=== PATIENT | female | born 1985 | race Caucasian/White ===

== ENCOUNTER → 2023-12-11 11:48 | Outpatient (REF) | payer BC, SELFPAY | LOC: PNTC 11:48 | PROVIDERS: ATTENDING PHYSICIAN Obstetrics & Gynecology | DX: O44.03 Complete placenta previa NOS or without hemorrhage, third trimester (principal); O43.219 Placenta accreta, unspecified trimester; O09.819 Supervision of pregnancy resulting from assisted reproductive technology, unspecified trimester; O09.529 Supervision of elderly multigravida, unspecified trimester; O36.4XX0 Maternal care for intrauterine death, not applicable or unspecified | CPT/HCPCS: 76811; 76817; 93976 ==

== ENCOUNTER 2023-12-13 07:40 | Emergency (ER) | payer BC, SELFPAY ==
[2023-12-13 07:42] VITALS: BP 121/80
[2023-12-13 08:18] VITALS: BMI 36.8
[2023-12-13 08:22] VITALS: BP 142/108
--- NOTE | 2023-12-13 08:28 | ED.GENMED ---
History of Present Illness
<JEANNIE Queen - Last Filed: 12/13/23 14:41>
General
Chief Complaint: Problems
Source: patient
Exam Limitations: none
Time Seen by Provider: 12/13/23 08:16
Nursing documentation reviewed up to this point in time: agreed with
Travel History
Have you had any contact with someone who has COVID-19?: No
Do you have any symptoms of coronavirus? Fever > 100 degrees, chills, cough, shortness of breath, sore throat, loss of taste or smell, muscle aches, or headache?: No
History of Present Illness
History of Present Illness:
38-year-old female presents to the ER for evaluation. Patient is 21 weeks 4 days and reports this morning she has not felt movement. She reports normally she feels the baby move every morning. She does have history 2 years ago of
delivering a full-term stillbirth. She is followed by Dr. Jackie banuelos.
She denies any abdominal pain back pain nausea vomiting, vaginal bleeding.
Past History
<JEANNIE Queen - Last Filed: 12/13/23 14:41>
Past History
ED Past Surgical History: Gynecological
Social History
Tobacco: Non-smoker
Alcohol: None
Drug: None
Personal:
Living: with family
Employment: Employed
Family History
Family History: Other (clotting disorder)
Review of Systems
<JEANNIE Queen - Last Filed: 12/13/23 14:41>
Review of Systems
Allergies reviewed?: Yes
All Other Systems: ROS reviewed and negative except as documented in HPI and ROS
Constitutional: Reports no symptoms; Denies fever, fatigue or chills
Respiratory: Reports no symptoms
Cardiac: Reports no symptoms
ABD/GI: Reports no symptoms; Denies abdominal pain, nausea or vomiting
: Reports no symptoms
Musculoskeletal: Denies neck pain or back pain
Skin: Reports no symptoms
Neurological: Reports no symptoms
Psychiatric: Reports no symptoms
Phy Exam
<JEANNIE Queen - Last Filed: 12/13/23 14:41>
General Physical Exam
General Presentation: no apparent distress
General age: appears stated age
General Skin: warm and dry
General Mental: alert
General Hydration: appears well hydrated
Gastrointestinal Exam
Gastrointestinal Exam: non tender and other (gravid abdomen )
Neurological Exam
Neurological Exam: alert and oriented x3
Musculoskeletal Exam
Musculoskeletal Exam: full ROM
Skin Exam
Skin Exam: normal color and warm/dry
Psychiatric Exam
Psychiatric Exam: normal mood/affect
Course
<JEANNIE Queen - Last Filed: 12/13/23 14:41>
Orders/Labs/Results
Orders:
Orders
12/13/23 08:36
US Limited Urgent
Reason For Exam: no movement
Vital Signs
Initial and Last Documented VS:
Initial Vital Signs
Temp Pulse Resp BP Pulse Ox
98.3 F 118 18 121/80 100
12/13/23 07:42 12/13/23 07:42 12/13/23 07:42 12/13/23 07:42 12/13/23 07:42
Last Documented Vital Signs
Temp Pulse Resp BP Pulse Ox
98.3 F 98 18 123/66 96
12/13/23 07:42 12/13/23 09:47 12/13/23 08:51 12/13/23 09:47 12/13/23 08:51
Supervisor Of Operations consulted with Physician
Supervisor Of Operations consulted with physician?: Yes
Name of Physician Consulted: saqib
Information
Weeks gestation: Weeks:
Location: Location:
<Gail Macias MD - Last Filed: 12/13/23 09:18>
Orders/Labs/Results
Orders:
Orders
12/13/23 08:36
US Limited Urgent
Reason For Exam: no movement
Vital Signs
Initial and Last Documented VS:
Initial Vital Signs
Temp Pulse Resp BP Pulse Ox
98.3 F 118 18 121/80 100
12/13/23 07:42 12/13/23 07:42 12/13/23 07:42 12/13/23 07:42 12/13/23 07:42
Last Documented Vital Signs
Temp Pulse Resp BP Pulse Ox
98.3 F 98 18 123/66 96
12/13/23 07:42 12/13/23 09:47 12/13/23 08:51 12/13/23 09:47 12/13/23 08:51
<JEANNIE Queen - Last Filed: 12/13/23 14:41>
MDM/Problems Addressed
Differential Diagnosis Includes:
Not limited to demise
MDM/Problems Addressed:
Patient is a 38-year-old female who presents today at 20 weeks 1 day with concerns of decreased movement. She reports normally in the morning she feels the baby move but did not this morning. She does have prior history 2 years ago
of delivering a full-term stillbirth. Patient presents anxious. She denies any abdominal pain vaginal bleeding back pain. I spoke with labor and delivery with 21-week gestation ultrasound was ordered from ER. Ultrasound is normal with good
activity. Patient is stable for discharge home.
<JEANNIE Queen - Last Filed: 12/13/23 14:41>
*Radiology
Radiology exam reviewed: radiology read reviewed (Ultrasound shows single viable intrauterine fetus which indicate an estimated gestational age of 21 weeks and 5 days)
*Pulse Oximetry
Patient hypoxic: no
*Critical Care Note
Total Time (30-74mins, 75-104mins- exclusive of procedures): Not Applicable
ED Attending Note
<JEANNIE Queen - Last Filed: 12/13/23 14:41>
-
Portions of this chart may have been created with voice recognition software.� Occasional wrong word or��sound alike� substitutions may have occurred due to the inherent limitations of voice recognition software.
<Gail Macias MD - Last Filed: 12/13/23 09:18>
ED Attending Note
Patient seen and examined by attending physician: Yes
I performed the substantive portion of visit, reviewed & personally made and approve the management plan that is documented in note by myself or HALEIGH.: Yes
ED Attending Note:
38 yr old with decreased movemnet this AM. No abd pain. bleeding or leakage of fluid. US c/w nl IUP. OB contated. Pt will f/u.
Discharge Plan
Departure
Patient Disposition: Home (Routine Discharge)
Date of Disposition: 12/13/23
Time of Disposition: 09:44
Patient with high blood pressure during this ER visit?: Yes
Condition: Fair
Covid-19: Not Applicable
Discharge Problem:
evaluation
Instructions: BLOOD PRESSURE
Prescriptions:
No Action
Vitamin Tablet
1 tab PO DAILY AT 0700
aspirin 81 mg Capsule
81 mg PO DAILY
Lovenox
Referrals:
Kirstie Mejia, DO [Active] -
NONE,* [Family Provider] -
Activity Restrictions/Additional Instructions:
Follow-up as scheduled with your [employer] ARCHITECT. Return if any worsening of symptoms.
As discussed please have your blood pressure rechecked by your [employer] ARCHITECT as it was elevated here in the ER.
Interventions
Interventions:
*Risk Screen - Suicide Last Done: 12/13/23 07:42
*General Assessment Last Done: 12/13/23 08:18
*Neglect/Abuse Screening Last Done: 12/13/23 07:42
ED- Fall Risk Assessment Last Done: 12/13/23 08:18
*ED COVID-19 Vaccine History Last Done: 12/13/23 07:42
*Nursing Disposition Last Done: 12/13/23 09:49
ED-Female Genitourinary Assessment Last Done: 12/13/23 08:18
Discharge Date and Time
Discharge Date/Time: 12/13/23 09:49
[2023-12-13 09:16] VITALS: BP 147/90
[2023-12-13 09:45] VITALS: BP 123/66
[2023-12-13 09:47] VITALS: BP 123/66
== END 2023-12-13 09:49 | disposition home or self-care (01) ==
LOC: EMR 07:40
PROVIDERS: EMERGENCY PHYSICIAN Emergency Medicine
DX: O26.892 Other specified pregnancy related conditions, second trimester (principal); Z3A.21 21 weeks gestation of pregnancy
CPT/HCPCS: 99284; 76815

== ENCOUNTER → 2023-12-14 09:30 | Outpatient (REF) | payer BC, SELFPAY ==
--- NOTE | 2023-12-14 10:16 | PN.DIAED06 ---
Meal Plan - Gestational
- Breakfast
Gestational Diabetes Meal Plan Name: 2000 calories
Breakfast - Total Carbohydrate (grams): 45
Breakfast - Starch Carbohydrate: 2
Breakfast - Fruit Carbohydrate: 0
Breakfast - Milk Carbohydrate: 1
Breakfast - Nonstarchy Vegetables: Yes
Breakfast - Meat/Protein: 1
Breakfast - Fat: 2
- Morning Snack
Morning Snack - Total Carbohydrate (grams): 30
Morning Snack - Starch Carbohydrate: 1
Morning Snack - Fruit Carbohydrate: 0
Morning Snack - Milk Carbohydrate: 1
Morning Snack - Nonstarchy Vegetables: Yes
Morning Snack - Meat/Protein: 0
Morning Snack - Fat: 0
- Lunch
Lunch - Total Carbohydrate (grams): 45
Lunch - Starch Carbohydrate: 1
Lunch - Fruit Carbohydrate: 1
Lunch - Milk Carbohydrate: 1
Lunch - Nonstarchy Vegetables: Yes
Lunch - Meat/Protein: 2
Lunch - Fat: 2
- Afternoon Snack
Afternoon Snack - Total Carbohydrate (grams): 30
Afternoon Snack - Starch Carbohydrate: 1
Afternoon Snack - Fruit Carbohydrate: 1
Afternoon Snack - Milk Carbohydrate: 0
Afternoon Snack - Nonstarchy Vegetables: Yes
Afternoon Snack - Meat/Protein: 1
Afternoon Snack - Fat: 0
- Dinner
Dinner - Total Carbohydrate (grams): 45
Dinner - Starch Carbohydrate: 2
Dinner - Fruit Carbohydrate: 1
Dinner - Milk Carbohydrate: 0
Dinner - Nonstarchy Vegetables: Yes
Dinner - Meat/Protein: 2
Dinner - Fat: 2
- Evening Snack
Evening Snack - Total Carbohydrate (grams): 45
Evening Snack - Starch Carbohydrate: 1
Evening Snack - Fruit Carbohydrate: 1
Evening Snack - Milk Carbohydrate: 1
Evening Snack - Nonstarchy Vegetables: Yes
Evening Snack - Meat/Protein: 1
Evening Snack - Fat: 0
--- NOTE | 2023-12-15 08:30 | PN.DIAED02 ---
Referral
Referred For: Gestational Diabetes Self-Management Training
PHI Release Authorization Form Signed: Yes
Patient Problems:
Current Active Problems
Problem Status Onset
Gestational diabetes
Demographic
(1) Gestational diabetes
Status: Acute Code(s): O24.419 - Gestational diabetes mellitus in , unspecified control
Patient's primary language-: [place]
Medical History of Diabetes
- Female Specific Medical History
Currently ?: Yes
Receiving care?: Yes
Estimated date of Confinement: 04/20/24 (C section scheduled for 04/03/24)
: 3
Para: 1
Care Plan
- Education Needs
Patient Education Needs: Preconception care//gestational diabetes management
Recommended Diabetes Training Program based on assessment: Gestational Diabetes Management
- Plan of Care
Plan of Care:
Amalia seen today for diagnosis gestational diabetes. EDC 04/20/24 (female),scheduled 04/03/24. 7 yr son at home. Stillborn male at 35 week 02/2021. Prior history of GDM with second , no education given. Discussed what is occuring
in her body and importance to keep BS well controlled to avoid any complications (hypoglycemia, macrosomia) to her daughter.She brought in One Touch Ultra 2 glucometer from previous , test strips . She was paying for the test strips
out of pocket at the time. Instructions with excellent return demonstration using Contour Next EX glucometer, initially nervous about 'sticking' herself,she was pleased that she didn't feel and requesting to use this glucometer. Aware of proper
testing technique, lancing device set at 2, testing sites ( previously used fingertips as opposed to side of the fingers), to wipe first drop away and expected results. Log sheet provided for her to record BS, aware to call results to Natalia at
[facility] every Monday. Todays results 99 mg/dl at 1000. To check FBS and 2 hr pp every meal withe expected results FBS <95 mg/dl, and 2 hr pp result <120 mg/dl. Discussed macronutrients and effect each has on BS and metabolism. Provided
with 2000 rochelle ADA GDM meal plan ((5'9', pre wgt 259#, current wgt 245#). Advised not to intentionally lose weight while , states she has been eating healthier since dx, heavily restricting CHO. Discussed importance of CHO as well as
her eating pattern/preferences. She is aware to avoid fruit/fruit juices until noon. Typical breakfast includes omelet or egg with toast/avocado, may add almond yogurt. snack preferences are veggies w/hummus, fruit w/sunflower butter Lunches consist
of salads, soup, half of sandwich, will add fruit at this time. Dinners are typically a protein, starch and vegetables/salad. She has not been eating processed/sweets. She is concerned that quantity is more than she can consume, did reduce 2 snack
to 15 gm CHO and okay to consume 30-45 gm CHO at meal.
The placenta is low but starting to move so at this time, she is unable to exercise. Once cleared of placenta previa, she will walk. She is active around the house. She is aware that having GDM puts her at risk for developing T2DM. To call if she
has further questions or needs insulin as the develops.
States she did go to the ED yesterday due to decreased movements, tearful discussion as she is worried about demise. Emotional support and understanding given
== END ==
LOC: DES 09:30
PROVIDERS: ATTENDING PHYSICIAN Obstetrics & Gynecology
DX: O24.419 Gestational diabetes mellitus in pregnancy, unspecified control (principal)
CPT/HCPCS: 99078

== ENCOUNTER → 2024-01-02 10:11 | Outpatient (REF) | payer BC, SELFPAY | LOC: PNTC 10:11 | PROVIDERS: ATTENDING PHYSICIAN Obstetrics & Gynecology | DX: O09.529 Supervision of elderly multigravida, unspecified trimester (principal); O99.210 Obesity complicating pregnancy, unspecified trimester; O09.819 Supervision of pregnancy resulting from assisted reproductive technology, unspecified trimester; O36.4XX0 Maternal care for intrauterine death, not applicable or unspecified | CPT/HCPCS: 76816 ==

== ENCOUNTER → 2024-01-05 09:13 | Outpatient (REF) | payer BC, SELFPAY ==
--- NOTE | 2024-01-05 09:59 | PN.DIAED10 ---
Update Note
- Diabetes Education Update Note
Notes:
Follow up visit for insulin instructions. Amalia with elevated FBS last week 95-101 mg/dl, this morning result 114 mg/dl. To start NPH 6 units HS, insulin pen and pen needles to be picked up this evening. Discussed onset, peak and duration
definitions. Discussed symptoms and treatment of hypoglycemia. Suggest checking BS tonight at [phone]. Instructions with excellent return demonstration using insulin pen, Amalia is aware to gently mix to a cloudy consistency, clean top of pen and
her thigh, attach needle, prime the needle, reset to zero, dial dose of 6 units, inject and hold in place for a count of 10. To dispose of needle in her sharps container. She is aware to call with any questions.
== END ==
LOC: DES 09:13
PROVIDERS: ATTENDING PHYSICIAN Obstetrics & Gynecology
DX: O24.419 Gestational diabetes mellitus in pregnancy, unspecified control (principal)
CPT/HCPCS: 99078

== ENCOUNTER → 2024-01-30 10:14 | Outpatient (REF) | payer BC, SELFPAY | LOC: PNTC 10:14 | PROVIDERS: ATTENDING PHYSICIAN Obstetrics & Gynecology | DX: O09.529 Supervision of elderly multigravida, unspecified trimester (principal); O99.210 Obesity complicating pregnancy, unspecified trimester; O09.819 Supervision of pregnancy resulting from assisted reproductive technology, unspecified trimester; Z87.59 Personal history of other complications of pregnancy, childbirth and the puerperium | CPT/HCPCS: 76816 ==

== ENCOUNTER → 2024-02-26 09:53 | Outpatient (REF) | payer BC, SELFPAY | LOC: PNTC 09:53 | PROVIDERS: ATTENDING PHYSICIAN Obstetrics & Gynecology | DX: O09.529 Supervision of elderly multigravida, unspecified trimester (principal); O99.210 Obesity complicating pregnancy, unspecified trimester; O09.819 Supervision of pregnancy resulting from assisted reproductive technology, unspecified trimester; O36.4XX0 Maternal care for intrauterine death, not applicable or unspecified; O43.219 Placenta accreta, unspecified trimester | CPT/HCPCS: 59025; 76816; 93976 ==

== ENCOUNTER → 2024-02-29 09:51 | Outpatient (REF) | payer BC, SELFPAY | LOC: PNTC 09:51 | PROVIDERS: ATTENDING PHYSICIAN Obstetrics & Gynecology | DX: O99.210 Obesity complicating pregnancy, unspecified trimester (principal); O88.213 Thromboembolism in pregnancy, third trimester; O09.299 Supervision of pregnancy with other poor reproductive or obstetric history, unspecified trimester; O13.9 Gestational [pregnancy-induced] hypertension without significant proteinuria, unspecified trimester | CPT/HCPCS: 59025 ==

== ENCOUNTER → 2024-03-04 09:53 | Outpatient (REF) | payer BC, SELFPAY | LOC: PNTC 09:53 | PROVIDERS: ATTENDING PHYSICIAN Obstetrics & Gynecology | DX: O99.210 Obesity complicating pregnancy, unspecified trimester (principal); O88.213 Thromboembolism in pregnancy, third trimester; O36.4XX0 Maternal care for intrauterine death, not applicable or unspecified; O24.419 Gestational diabetes mellitus in pregnancy, unspecified control | CPT/HCPCS: 59025; 76815 ==

== ENCOUNTER → 2024-03-07 14:39 | Outpatient (REF) | payer BC, SELFPAY | LOC: PNTC 14:39 | PROVIDERS: ATTENDING PHYSICIAN Obstetrics & Gynecology | DX: O99.210 Obesity complicating pregnancy, unspecified trimester (principal); O24.419 Gestational diabetes mellitus in pregnancy, unspecified control | CPT/HCPCS: 59025 ==

== ENCOUNTER → 2024-03-11 10:01 | Outpatient (REF) | payer BC, SELFPAY | LOC: PNTC 10:01 | PROVIDERS: ATTENDING PHYSICIAN Obstetrics & Gynecology | DX: O99.210 Obesity complicating pregnancy, unspecified trimester (principal); O88.213 Thromboembolism in pregnancy, third trimester; O24.419 Gestational diabetes mellitus in pregnancy, unspecified control; O36.4XX0 Maternal care for intrauterine death, not applicable or unspecified | CPT/HCPCS: 59025; 76815 ==

== ENCOUNTER 2024-03-12 21:42 | Observation (INO) | payer BC, SELFPAY ==
[2024-03-12 21:59] VITALS: BP 125/86; BMI 34.1
== END 2024-03-12 22:54 | disposition home or self-care (01) ==
LOC: LDRP 21:42
PROVIDERS: ADMITTING PHYSICIAN Obstetrics & Gynecology
DX: R10.31 Right lower quadrant pain (principal); O99.113 Other diseases of the blood and blood-forming organs and certain disorders involving the immune mechanism complicating pregnancy, third trimester; Z3A.34 34 weeks gestation of pregnancy; O09.523 Supervision of elderly multigravida, third trimester; O24.414 Gestational diabetes mellitus in pregnancy, insulin controlled; D68.59 Other primary thrombophilia; O09.293 Supervision of pregnancy with other poor reproductive or obstetric history, third trimester
CPT/HCPCS: 59899; G0378

== ENCOUNTER → 2024-03-14 09:52 | Outpatient (REF) | payer BC, SELFPAY | LOC: PNTC 09:52 | PROVIDERS: ATTENDING PHYSICIAN Obstetrics & Gynecology | DX: O99.210 Obesity complicating pregnancy, unspecified trimester (principal); O36.4XX0 Maternal care for intrauterine death, not applicable or unspecified | CPT/HCPCS: 59025 ==

== ENCOUNTER → 2024-03-18 09:43 | Outpatient (REF) | payer BC, SELFPAY | LOC: PNTC 09:43 | PROVIDERS: ATTENDING PHYSICIAN Obstetrics & Gynecology | DX: D68.59 Other primary thrombophilia (principal); O99.210 Obesity complicating pregnancy, unspecified trimester; O36.4XX0 Maternal care for intrauterine death, not applicable or unspecified; O24.419 Gestational diabetes mellitus in pregnancy, unspecified control | CPT/HCPCS: 59025; 76815 ==

== ENCOUNTER → 2024-03-21 09:49 | Outpatient (REF) | payer BC, SELFPAY | LOC: PNTC 09:49 | PROVIDERS: ATTENDING PHYSICIAN Obstetrics & Gynecology | DX: D68.69 Other thrombophilia (principal); O99.210 Obesity complicating pregnancy, unspecified trimester; O36.4XX0 Maternal care for intrauterine death, not applicable or unspecified; O24.419 Gestational diabetes mellitus in pregnancy, unspecified control | CPT/HCPCS: 59025 ==

== ENCOUNTER → 2024-03-26 09:58 | Outpatient (REF) | payer BC, SELFPAY | LOC: PNTC 09:58 | PROVIDERS: ATTENDING PHYSICIAN Obstetrics & Gynecology | DX: D68.69 Other thrombophilia (principal) | CPT/HCPCS: 59025; 76816 ==

== ENCOUNTER → 2024-04-02 10:18 | Outpatient (REF) | payer BC, SELFPAY | LOC: PNTC 10:18 | PROVIDERS: ATTENDING PHYSICIAN Obstetrics & Gynecology | DX: D68.69 Other thrombophilia (principal); O99.210 Obesity complicating pregnancy, unspecified trimester; O36.4XX0 Maternal care for intrauterine death, not applicable or unspecified; O24.419 Gestational diabetes mellitus in pregnancy, unspecified control | CPT/HCPCS: 59025; 76815 ==

== ENCOUNTER 2024-04-03 07:44 | Inpatient (IN) | payer BC, SELFPAY ==
[2024-04-03 08:24] LABS: Glucose - Point of Care 93 mg/dl (70-99)
[2024-04-03 08:25] VITALS: BP 97/76; BMI 35.6
--- NOTE | 2024-04-03 08:25 | W.SUR.PREOP ---
Pre-Operative Surgical Note
-
I have examined this patient prior to the performance of the scheduled procedure.
The patient's condition is unchanged from the time of the current History and
Physical and the patient is able to undergo the scheduled procedure.
[2024-04-03 08:35] LABS: Hematocrit 37.5 % (37.0-47.0); Hemoglobin 12.5 g/dL (12.0-16.0); Mean Corp Hgb Conc. 33.3 g/dL (33.0-37.0); Mean Corpuscular Hgb 25.8 pg (27.0-31.0); Mean Corpuscular Volume 77.3 fL (81.0-99.0); Mean Platelet Volume 10.9 fL (7.4-10.4); Platelet Count 163 10^3/uL (130-400); Red Blood Cell Count 4.85 10^6/uL (4.20-5.40); Red Cell Dist. Width 15.6 % (11.5-14.5); White Blood Cell Count 8.1 10^3/uL (4.8-10.8)
[2024-04-03] MEDS: ANCEF 10 IV (10:09)
[2024-04-03] MEDS: BICITRA 30 ML PO (10:09)
[2024-04-03] MEDS: TYLENOL 1000 MG PO (10:10)
[2024-04-03] MEDS: PITOCIN 30 UNITS/NSS 500 ML IV (11:22)
[2024-04-03] MEDS: TORADOL 15 MG IV ×2 (17:00→23:37)
[2024-04-04] MEDS: TORADOL 15 MG IV ×2 (04:48→10:51)
[2024-04-04 05:05] LABS: Hematocrit 29.5 % (37.0-47.0); Hemoglobin 9.7 g/dL (12.0-16.0); Mean Corp Hgb Conc. 32.9 g/dL (33.0-37.0); Mean Corpuscular Hgb 26.2 pg (27.0-31.0); Mean Corpuscular Volume 79.7 fL (81.0-99.0); Mean Platelet Volume 11.9 fL (7.4-10.4); Platelet Count 170 10^3/uL (130-400); Red Cell Dist. Width 15.6 % (11.5-14.5); White Blood Cell Count 13.9 10^3/uL (4.8-10.8)
[2024-04-04] MEDS: PRENATAL PLUS 1 TABLET PO (06:33)
--- NOTE | 2024-04-04 07:59 | W.PN.ANS.POP ---
Anesthesia Post Operative
- Anesthesia Post Op Note
Vital Signs Stable-See Nursing Note: Yes
Airway Patent: Yes
Adequate Pain Control: Yes
Change in Mental Status: No
Current Postoperative Nausea & Vomiting: No
Anesthesia Complications: No
General Anesthetic Recall: No
Unplanned Admission: No
Post Op Hydration Adequate: Yes
[2024-04-04] MEDS: PERCOCET 5/325 1 TABLET PO (13:48)
[2024-04-04] MEDS: MOTRIN 600 MG PO (18:31)
[2024-04-04] MEDS: PERCOCET 5/325 2 TABLET PO (20:30)
[2024-04-05] MEDS: MOTRIN 600 MG PO (00:14)
[2024-04-05] MEDS: PERCOCET 5/325 2 TABLET PO ×3 (01:59→12:17)
[2024-04-05] MEDS: FEOSOL 325 MG PO (07:49)
[2024-04-05] MEDS: PRENATAL PLUS 1 TABLET PO (07:49)
--- NOTE | 2024-04-05 10:29 | W.DS.TRANS ---
DC Summary - System Support Developer
-
Discharge Instructions:
Discharge Diagnosis/Procedures rcs
Instructions:
Stand-Alone Forms: LDRP Delivery
Changes to Home Medications: No
Discharge Medications:
DC Medications w/original date entered in [employer]
Vitamin Tablet 1 tab PO DAILY AT 0700 02/22/21
vit D3-folic [id number] 1 tab PO DAILY 04/03/24
ibuprofen 600 mg tablet 600 mg PO Q6HPRN PRN cramps #90 tabs 04/05/24
oxycodone-acetaminophen 5 mg-325 mg tablet 2 tab PO Q4HPRN PRN severe pain #10 tabs 04/05/24
Home Medication Changes
Pending Results: Yes
Additional Pending Results:
pathology
Total time spent discharging patient (in min): 20
[2024-04-05 13:18] LABS: Syphilis/T. pallidum Ab Reflex Negative (Negative)
== END 2024-04-05 13:38 | disposition home or self-care (01) | DRG 787 ==
LOC: LDRP 07:44
PROVIDERS: ADMITTING PHYSICIAN Obstetrics & Gynecology
PROC: 10D00Z1 Extraction of Products of Conception, Low, Open Approach (ICD-10-PCS; 2024-04-03)
DX: O34.211 Maternal care for low transverse scar from previous cesarean delivery (principal); D68.59 Other primary thrombophilia; E72.12 Methylenetetrahydrofolate reductase deficiency; O99.12 Other diseases of the blood and blood-forming organs and certain disorders involving the immune mechanism complicating childbirth; N85.8 Other specified noninflammatory disorders of uterus; O99.214 Obesity complicating childbirth; O99.284 Endocrine, nutritional and metabolic diseases complicating childbirth; Z3A.37 37 weeks gestation of pregnancy; Z37.0 Single live birth; O24.429 Gestational diabetes mellitus in childbirth, unspecified control; O09.299 Supervision of pregnancy with other poor reproductive or obstetric history, unspecified trimester
CPT/HCPCS: 88307; 82962; 85027; 86780; 86850; 86900; 86901

== ENCOUNTER → 2024-07-31 10:22 | Outpatient (REF) | payer BC, SELFPAY | LOC: WDC 10:22 | PROVIDERS: ATTENDING PHYSICIAN Obstetrics & Gynecology | DX: N63.32 Unspecified lump in axillary tail of the left breast (principal); N63.23 Unspecified lump in the left breast, lower outer quadrant | CPT/HCPCS: 76642 ==

== ENCOUNTER → 2024-11-13 16:41 | Outpatient (REF) | payer BC, SELFPAY | LOC: WDC 16:41 | PROVIDERS: ATTENDING PHYSICIAN Obstetrics & Gynecology | DX: Z12.31 Encounter for screening mammogram for malignant neoplasm of breast (principal) | CPT/HCPCS: 77063; 77067 ==

== ENCOUNTER → 2024-11-25 08:48 | Outpatient (REF) | payer BC, SELFPAY | LOC: WDC 08:48 | PROVIDERS: ATTENDING PHYSICIAN Obstetrics & Gynecology | DX: R92.8 Other abnormal and inconclusive findings on diagnostic imaging of breast (principal) | CPT/HCPCS: 76642 ==

== ENCOUNTER → 2024-12-04 11:47 | Outpatient (REF) | payer BC, SELFPAY ==
--- NOTE | 2024-12-04 15:46 | OID.BR.INTR ---
[facility] Breast Navigator - Initial
- -
Date of Contact: 12/04/24
Met with patient. Patient given written information on navigator services available at [facility]. Will follow up as needed per protocol.
== END ==
LOC: WDC 11:47
PROVIDERS: ATTENDING PHYSICIAN Obstetrics & Gynecology
DX: N63.12 Unspecified lump in the right breast, upper inner quadrant (principal)
CPT/HCPCS: 88305; 19083; A4648

== ENCOUNTER → 2025-01-23 14:13 | Outpatient (REF) | payer BC, SELFPAY | LOC: WDC 14:13 | PROVIDERS: ATTENDING PHYSICIAN Obstetrics & Gynecology | DX: R92.8 Other abnormal and inconclusive findings on diagnostic imaging of breast (principal); R93.89 Abnormal findings on diagnostic imaging of other specified body structures | CPT/HCPCS: 76642 ==